=== PATIENT | male | born 1950 | race Caucasian/White ===

== ENCOUNTER 2017-11-19 21:54 | Inpatient (IN) | payer MEDICARE ==
[2017-11-19] MEDS ORDERED: ATIVAN IV ONE ×2 (21:55→22:35)
[2017-11-19] MEDS ORDERED: KEPPRA 1,000 MG/NS 0.75% 100ML 1,000 MG/100 ML BAG IV ONE ×3 (22:00→23:59)
--- NOTE | 2017-11-19 22:02 | Emergency Department Report ---
HPI - General Time Seen by Provider: 11/19/17 22:00 - HPI HPI: 67-year-old male presents to the emergency department via EMS from home as a code stroke. The patient called his girlfriend around 8:45 PM this evening saying that he was not feeling well and to come and check on him. He then called EMS. When EMS arrived the patient was aphasic. They say that he looked like he understood what was going on and wanted to talk but was unable to do so. As they were pulling up towards our emergency department, the patient started having a seizure. He was not given anything for the seizure or for his symptoms prior to arrival. The patient does have a history of previous CVA with right-sided deficits and apparently the previous CVA and also caused him to have some seizures. Unknown any other past medical history or home medications. The patient is currently a poor historian secondary to his current medical condition. ED Past Medical Hx - Past Medical History Hx Hypertension: No Hx CVA: Yes Hx Heart Attack/AMI: Yes (2007 - stents) Hx Congestive Heart Failure: No Hx Diabetes: No Hx Seizures: Yes Hx Asthma: No Hx Tuberculosis: No Hx HIV: No Additional medical history: Right side paralysis - Social History Smoking Status: Never Smoker - Medications Home Medications: Home Medications Medication Instructions Recorded Confirmed Last Taken Type AtorvaSTATin [Lipitor] 80 mg PO QHS 03/23/17 11/20/17 03/21/17 22:00 History 80mg Multivitamin with Iron 1 each PO DAILY 03/23/17 11/20/17 03/22/17 08:30 History [Multivitamins with Iron] 1 tab amLODIPine [Norvasc] 10 mg PO DAILY 03/23/17 11/20/17 03/22/17 08:30 History 10mg Aspirin [Aspirin BABY CHEW TAB] 81 mg PO QDAY 11/20/17 11/20/17 Unknown History Folic Acid [Folvite] 1 mg PO QDAY 11/20/17 11/20/17 Unknown History levETIRAcetam [Keppra] 2,000 mg PO BID 11/20/17 11/20/17 Unknown History ED Review of Systems ROS: Stated complaint: POSS CVA Other details as noted in HPI Comment: Unobtainable due to pts medical conditions Physical Exam - Physical Exam Physical Exam: GENERAL: The patient is well-developed well-nourished. HENT: Normocephalic. Atraumatic. Patient has moist mucous membranes. EYES: Patient appears to have a right-sided gaze preference during his seizures. Pupils equal reactive to light bilaterally. NECK: Supple. Trachea is midline. CHEST/LUNGS: Clear to auscultation. There is no respiratory distress noted. HEART/CARDIOVASCULAR: Regular. There is no tachycardia. There is no murmur. ABDOMEN: Abdomen is soft, nontender. Patient has normal bowel sounds. There is no abdominal distention. SKIN: Skin is warm and dry. NEURO: Patient presents actively seizing with convulsions seen to the right arm , right leg and head with the neck. He does not respond to any verbal or tactile stimuli. MUSCULOSKELETAL: There is no tenderness or deformity. There is no evidence of acute injury. ED Course - Consultations Consultation #1: 11/20/17 04:35 I spoke with the telemedicine neurologist, Dr. Agee, when the patient first arrived as part of the stroke protocol. Based on the fact that the patient was having a prolonged seizure, she did not feel that the patient was a TPA candidate and that his symptoms were more likely related to seizures. After the patient stopped seizing and a better examination was able to be done, the telemedicine neurologist examined him via senior director creative services and feels that his symptoms may be secondary to a Biju's paralysis and still feel that his symptoms were due to the seizure and he has not a TPA candidate. ED Medical Decision Making - Lab Data Result diagrams: 11/19/17 22:09 11/19/17 22:29 - EKG Data -: EKG Interpreted by Me EKG shows normal: sinus rhythm, axis (left axis deviation), intervals, QRS complexes (Q waves to the inferior leads), ST-T waves Rate: normal - EKG Data When compared to previous EKG there are: previous EKG unavailable Interpretation: other (sinus rhythm, left axis deviation, Q waves to the inferior leads) - Radiology Data Radiology results: report reviewed The patient received 2 different doses of 2 mg Ativan. I had a discussion with the telemedicine neurologist, and the neurologist at [facility], and was starting to work on getting the patient transferred to [place] when he stops seizing. He had a seizure for about one hour and 20 minutes. After the seizure stopped and the patient was continuously reassessed, he started to show some improvement in his mentation. He no longer has a gaze preference. You can see that he is tracking with his eyes. He is answering fashions with yes or no only. He is seen moving his left side very well. He is following some commands. After the patient's seizure stopped, I still had a discussion with the neuro critical care physician at [place], Dr. Soto. He agrees that the patient is no longer any status epilepticus and that we have the capability of obtaining an EEG and have a neurology consult, the patient will remain at [facility] but they are open to a transfer if the patient were to decline or began having status epilepticus seizures again. CT scan of the head was done stat upon arrival that did not show any bleed, shift, mass or any other acute process at this time. Patient's labs were mostly unremarkable and did not show any etiology of his symptoms. He was also covered with 2 g of Keppra, which is his twice daily dosing. The patient has been reevaluated multiple times for multiple hours in the emergency department and there has been no further seizure or strokelike activity thus far. Vital signs stable throughout his ED course. Critical Care Time: No Critical care attestation.: If time is entered above; I have spent that time in minutes in the direct care of this critically ill patient, excluding procedure time. ED Disposition Clinical Impression: Seizure disorder, Prolonged seizure Disposition: DC-09 OP ADMIT IP TO THIS HOSP Is pt being admited?: Yes Condition: Serious Time of Disposition: 04:39 - Assessment Assessment Interval: Baseline (Patient actively seizing) - Level of Consciousness 1a. Level of Consciousness: resp stimuli/obtunded - LOC Questions 1b. LOC Questions: answers no questions correctly - LOC Command 1c. LOC Commands: performs no tasks correctly - Best Gaze 2. Best Gaze: forced deviation - Visual 3. Visual: no visual loss - Facial Palsy 4. Facial Palsy: normal symmetrical movement - Motor Arm 5b. Motor Arm Right: no movement 5a. Motor Arm Left: no movement - Motor Leg 6a. Motor Leg Left: no movement 6b. Motor Leg Right: no movement - Limb Ataxia 7. Limb Ataxia: absent - Sensory 8. Sensory: normal - Best Language 9. Best Language: mute/global aphasia - Dysarthria 10. Dysarthria: mute/anarrthric - Extinction and Inattention 11. Extinction/Inattention: no abnormality (This is not an appropriate NIH stroke scale as it was performed while the patient was having active seizures as part of the patient's evaluation for a code stroke. The patient's stroke scale was still difficult to do after the seizure stopped and the patient had improved mentation. The patient does have chronic right-sided weakness from previous CVA 2.) - Scoring Total Score: 29 Stroke Severity: Severe Stroke
[2017-11-19 22:13] LABS: Basophils # (Auto) 0.1 K/mm3 (0.0-0.1); Basophils % (Auto) 0.9 % (0.0-1.8); Eosinophils # (Auto) 0.3 K/mm3 (0.0-0.4); Eosinophils % (Auto) 3.4 % (0.0-4.3); Hemoglobin 15.9 gm/dl (11.8-15.2); Lymphocytes # (Auto) 3.7 K/mm3 (1.2-5.4); Lymphocytes % (Auto) 41.3 % (13.4-35.0); Mean Corpuscular HGB Conc 34 % (32-34); Mean Corpuscular Hemoglobin 32 pg (28-32); Mean Corpuscular Volume 95 fl (84-94); Monocytes % (Auto) 10.6 % (0.0-7.3); Platelet Count 337 K/mm3 (140-440); Red Blood Count 4.95 M/mm3 (3.65-5.03); Red Cell Distribution Width 13.2 % (13.2-15.2)
--- NOTE | 2017-11-19 22:31 | Cat Scan Report ---
FINAL REPORT EXAM: CT HEAD/BRAIN WO CON HISTORY: Stroke symptoms TECHNIQUE: Contiguous axial images of the head were obtained without the use of intravenous contrast. PRIORS: 03/22/2017 FINDINGS: There is a stable left parietal chronic infarct. There is no evidence of acute infarct or intracranial hemorrhage. There is no mass lesion or mass effect. There are no abnormal extra-axial fluid collections. The ventricles and sulci are prominent consistent with generalized loss of brain substance, appropriate for age. The visualized skull and orbits are unremarkable. The visualized paranasal sinuses are clear. IMPRESSION: 1. No evidence of acute infarct or intracranial hemorrhage. 2. Stable left parietal chronic infarct
[2017-11-19] MEDS ORDERED: ATIVAN ONE (22:38)
[2017-11-19] MEDS ORDERED: CEREBYX IV ONE ×2 (22:40→23:00)
[2017-11-19 22:46] LABS: Alanine Aminotransferase 12 units/L (7-56); BUN/Creatinine Ratio 18; Blood Urea Nitrogen 18 mg/dL (9-20); Calcium 9.9 mg/dL (8.4-10.2)
[2017-11-19 22:47] LABS: Albumin 4.7 g/dL (3.9-5); Creatine Kinase MB 1.6 ng/mL (0.0-4.0)
[2017-11-19 22:48] LABS: INR 0.8 (0.87-1.13)
[2017-11-19 22:49] LABS: Partial Thromboplastin Time 30.2 Sec. (24.2-36.6); Thrombin Time 15.8 Sec. (15.1-19.6)
[2017-11-19] MEDS ORDERED: NACL IV ONE (23:00)
[2017-11-19] MEDS ORDERED: [UNRECOGNIZED DRUG - OTHER] IV ONE (23:00)
[2017-11-20] MEDS ORDERED: ATIVAN IV PRN (01:29)
[2017-11-20] MEDS ORDERED: TYLENOL PO PRN (01:31)
[2017-11-20] MEDS ORDERED: ZOFRAN IV PRN (01:31)
[2017-11-20] MEDS ORDERED: ERGOCALCIFEROL 50000 UNIT PO SCH (01:45)
[2017-11-20 03:32] LABS: Bilirubin,Urine NEG (Negative); Blood,Urine NEG (Negative); Color,Urine Straw (Yellow); Protein,Urine <15 mg/dL mg/dL (Negative); Urobilinogen,Urine < 2.0 mg/dL (<2.0); WBC,Urine < 1.0 /HPF (0.0-6.0)
[2017-11-20 03:43] LABS: Amphetamine Screen,Urine PRESUMPTIVE NEGATIVE; Benzodiazepines Screen,Urine PRESUMPTIVE NEGATIVE; Cannabinoid Screen,Urine PRESUMPTIVE NEGATIVE; Cocaine Screen,Urine PRESUMPTIVE NEGATIVE; Methadone Screen,Urine PRESUMPTIVE NEGATIVE; Opiate Screen,Urine PRESUMPTIVE NEGATIVE
--- NOTE | 2017-11-20 06:02 | History and Physical Report ---
CHIEF COMPLAINT: Seizure attack. OTHER COMPLAINT: Include change in mental status. HISTORY OF PRESENTING ILLNESS: The patient is a 67-year-old male who presented to the Emergency Room through EMS as a form of a code stroke because EMS saw the patient at home where he was unable to talk and felt that he probably was having a stroke and then transported patient to the Emergency Room and as the EMS was pooling up near the Emergency Room, the patient started having seizure and was subsequently brought into the Emergency Room. There was no prior history of chest pain. No prior history of shortness of breath. EMS only noted the patient called the girlfriend saying that he was not feeling too well and was unable to talk. There is no history of dizziness, fever, or chills, nausea or vomiting. PAST MEDICAL HISTORY: Pertinent for cerebrovascular accident, coronary artery disease, status post myocardial infarction, also the patient has past history of seizure disorder and right-sided paralysis. PAST SURGICAL HISTORY: Unremarkable. FAMILY HISTORY: Family history is noncontributory. SOCIAL HISTORY: The patient does not smoke, does not drink alcohol and does not use illicit drugs. MEDICATIONS: The patient is on aspirin 325 mg by mouth daily, Lipitor 80 mg by mouth at bedtime, vitamin D2 50,000 units every week, Nexium 40 mg by mouth twice daily, folic acid 1 mg by mouth daily, magnesium oxide 400 mg by mouth daily, multivitamin one by mouth daily, potassium chloride or Klor-Con 20 mEq by mouth daily, Norvasc 10 mg by mouth daily, Celexa 20 mg by mouth daily, Plavix 75 mg by mouth daily, multivitamin with mineral 1 by mouth daily, Keppra 1500 mg by mouth twice daily. ALLERGIES: There are no known drug allergies. REVIEW OF SYSTEMS: CONSTITUTIONAL: There is no fever, no chills, no diaphoresis. HEENT: There is no headache or sore throat. CARDIOVASCULAR SYSTEM: There is no chest pain or orthopnea. RESPIRATORY SYSTEM: There is no shortness of breath or cough. GASTROINTESTINAL SYSTEM: There is no nausea, no vomiting. No abdominal pain, diarrhea or constipation. NEUROLOGICAL SYSTEM: Speech impairment present, change in mental status present. MUSCULOSKELETAL SYSTEM: There is no joint pain or swelling. DERMATOLOGICAL SYSTEM: There is no skin rash or itching. GENITOURINARY SYSTEM: There is no dysuria, hematuria or flank pain. Rest of system review is normal. PHYSICAL EXAMINATION: GENERAL: At the time of exam, the patient was found to be alert, oriented x 3, unable to communicate and talk effectively, but not in acute distress. VITAL SIGNS: Shows normal temperature with pulse of 89, respiration 13, blood pressure 133/80, O2 sat of 97% on room air. HEENT: Show pupils to be equal, round, reactive to light and accommodating. Extraocular muscles are intact. NECK: Supple with no JVD or carotid bruit. CARDIOVASCULAR SYSTEM: Show normal first and second heart sounds with no gallops or murmurs. RESPIRATORY SYSTEM: Showed good air entry on both sides of the lungs with no abnormal breath sounds. GASTROINTESTINAL SYSTEM: Showed abdomen to be full, soft, nontender with no organomegaly or rigidity. NEUROLOGIC: Neuro exam shows no focal deficit. MUSCULOSKELETAL SYSTEM: Showed no joint swelling or tenderness. DERMATOLOGICAL SYSTEM: Showed no skin rash. GENITOURINARY SYSTEM: Showing no costovertebral angle tenderness. PERTINENT LABORATORY AND IMAGING STUDIES: The patient has CT of the head without contrast done that shows no evidence of acute infarct or intracranial hemorrhage. There is finding of stable left parietal chronic infarct. Lab results, the patient has CBC done that shows a normal white count, elevated hemoglobin of 15.9 and elevated hematocrit of 47 with high MCV of 95. The patient's CBC differential show high lymphocyte count of 41.3, high monocyte count of 10.6. Coagulation studies were unremarkable. The patient's chemistry came back unremarkable. Urinalysis was unremarkable. Urine drug screen was unremarkable. The patient's alcohol level was unremarkable. DIAGNOSES: 1. Seizure disorder. 2. Speech impairment. PLAN: 1. The patient will be admitted to telemetry. 2. The patient will have MRI of the brain done without contrast this morning as recommended by Tele Neurology. 3. The patient will have Neurology consult with Dr. Tez Brian for management of seizure disorder and speech impairment. 4. The patient will have speech therapy consult this morning. 5. The patient will be on IV Ativan 1 mg every 2 hours as needed for seizure attack. 6. The patient will be on IV Zofran 4 mg every 8 hours for nausea and vomiting and will also be on Tylenol 650 mg by mouth every 4 hours for fever and headache. 7. The patient will be on his home medication as shown in the medication reconciliation section. 8. The patient will be on oxygen by nasal cannula at 2 liter per minute. 9. The patient will be n.p.o. until swallow test is passed. JOB# [id number] OCN/NTS MTDD
[2017-11-20] MEDS ORDERED: ATIVAN ONE (07:17)
[2017-11-20] MEDS ORDERED: NON-FORMULARY (Multivitamin With Iron [Multivitamins With Iron] 1 EACH) PO SCH (10:00)
[2017-11-20] MEDS: KEPPRA PO SCH ×2 (11:52→21:19)
[2017-11-20] MEDS: PLAVIX PO SCH (11:52)
[2017-11-20] MEDS: MAG-OX PO SCH (11:52)
[2017-11-20] MEDS: NORVASC PO SCH (11:53)
[2017-11-20] MEDS: celeXA PO SCH (11:53)
[2017-11-20] MEDS: PROTONIX PO SCH ×2 (11:54→21:19)
[2017-11-20] MEDS: ASPIRIN PO SCH (11:54)
[2017-11-20] MEDS: FOLVITE PO SCH (11:54)
[2017-11-20] MEDS: HEPARIN SUB-Q SCH ×2 (11:54→21:19)
[2017-11-20] MEDS: THERAGRAN-M Tab PO SCH (11:54)
--- NOTE | 2017-11-20 12:05 | Magnetic Resonance Report ---
MRI BRAIN WITHOUT CONTRAST INDICATION: Seizure. COMPARISON: Yesterday's head CT and February 2017 neuroimaging, including MRI. FINDINGS: Noncontrast multiplanar and multisequence MRI of the brain now demonstrates approximately 5.7 cm old left parietal-posterior frontal-temporal infarct/encephalomalacia without acute infarct, hemorrhage, mass effect or midline shift. No abnormal extra axial masses or fluid collections. Normal remainder ventricles and sulci with mild periventricular and biju-infarct FLAIR and T2-weighted hyperintensities. Occluded left ICA again noted with grossly normal remainder major intracranial vascular flow voids. Normal posterior fossa with preserved basilar cisterns and symmetric seventh and eighth nerve complexes. Unremarkable eye globes. Mild leftward nasal septal bowing. Grossly clear imaged paranasal sinuses, temporal bone and right mastoid air cells with left mastoid tip again noted not well pneumatized. Normal midline structures without evidence of Chiari malformation. CONCLUSION: No acute intracranial MRI abnormality on this exam slightly limited due to motion artifact with age appropriate atrophy, microvascular changes and an approximately 5.7 cm old left MCA territory infarct again noted, as detailed above. Thank you for the opportunity to participate in this patient's care.
--- NOTE | 2017-11-20 18:47 | Progress Note ---
Assessment and Plan Assessment and plan: --Seizure disorder; with breakthrough seizures Seizure precautions, continue Keppra, neurology following May consider to add a second antiepileptic medication. Follow EEG --Brief episode of stuttering of speech; possible TIA Symptoms completely resolved, CT head, MRI no acute abnormality Continue aspirin and statin, physical therapy, speech therapy if needed Possible DC with home health in stable --History of carotid artery stenosis; status post stent Continue current medications, antiplatelets and statins --Hypertension; moderate control Continue current antihypertensives and when necessary medications --Dyslipidemia; lipid-lowering medications --DVT prophylaxis; Lovenox DC planning per case management; possible home health to discharge Physical therapy occupational therapy Neurology recommendations noted and appreciated History Interval history: Patient seen and examined medical records reviewed Complaints of right-sided weakness, slurring speech improved Neuro workup is in progress Hospitalist Physical - Constitutional Vitals: Temp Pulse Resp BP Pulse Ox 97.4 F L 86 18 123/74 95 11/20/17 13:40 11/20/17 17:04 11/20/17 17:04 11/20/17 17:04 11/20/17 17:04 General appearance: Present: no acute distress, well-nourished, obese, other ( speech clear) - EENT Eyes: Present: PERRL, EOM intact - Neck Neck: Present: supple, normal ROM - Respiratory Respiratory effort: normal Respiratory: negative: rales, rhonchi, wheezing - Cardiovascular Rhythm: regular Heart Sounds: Present: S1 & S2 - Extremities Extremities: no ischemia, No edema Peripheral Pulses: within normal limits - Abdominal General gastrointestinal: soft, non-tender, non-distended, normal bowel sounds - Integumentary Integumentary: Present: clear, warm - Psychiatric Psychiatric: appropriate mood/affect, cooperative - Neurologic Neurologic: other (right-sided residual weakness) Results - Labs CBC & Chem 7: 11/19/17 22:09 11/19/17 22:29 Labs: Laboratory Last Values WBC 9.0 K/mm3 (4.5-11.0) 11/19/17 22:09 RBC 4.95 M/mm3 (3.65-5.03) 11/19/17 22:09 Hgb 15.9 gm/dl (11.8-15.2) H 11/19/17 22:09 Hct 47.0 % (35.5-45.6) H 11/19/17 22:09 MCV 95 fl (84-94) H 11/19/17 22:09 MCH 32 pg (28-32) 11/19/17 22:09 MCHC 34 % (32-34) 11/19/17 22:09 RDW 13.2 % (13.2-15.2) 11/19/17 22:09 Plt Count 337 K/mm3 (140-440) 11/19/17 22:09 Lymph % (Auto) 41.3 % (13.4-35.0) H 11/19/17 22:09 [place] % (Auto) 10.6 % (0.0-7.3) H 11/19/17 22:09 Eos % (Auto) 3.4 % (0.0-4.3) 11/19/17 22:09 Baso % (Auto) 0.9 % (0.0-1.8) 11/19/17 22:09 Lymph # 3.7 K/mm3 (1.2-5.4) 11/19/17 22:09 [place] # 1.0 K/mm3 (0.0-0.8) H 11/19/17 22:09 Eos # 0.3 K/mm3 (0.0-0.4) 11/19/17 22:09 Baso # 0.1 K/mm3 (0.0-0.1) 11/19/17 22:09 Seg Neutrophils % 43.8 % (40.0-70.0) 11/19/17 22:09 Seg Neutrophils # 4.0 K/mm3 (1.8-7.7) 11/19/17 22:09 PT 11.6 Sec. (12.2-14.9) L 11/19/17 22:05 INR 0.80 (0.87-1.13) L 11/19/17 22:05 APTT 30.2 Sec. (24.2-36.6) 11/19/17 22:05 Thrombin Time 15.8 Sec. (15.1-19.6) 11/19/17 22:05 Sodium 140 mmol/L (137-145) 11/19/17 22:29 Potassium 4.3 mmol/L (3.6-5.0) 11/19/17 22: Chloride 100.9 mmol/L (98-107) 11/19/17 22: Carbon Dioxide 20 mmol/L (22-30) L 11/19/17 22: Anion Gap 23 mmol/L 11/19/17 22: BUN 18 mg/dL (9-20) 11/19/17: Creatinine 1.0 mg/dL (0.8-1.5) 11/19/17 22: Estimated GFR > 60 ml/min 11/19/17: BUN/Creatinine Ratio 18 % 11/19/17 22: Glucose 128 mg/dL (75-100) H 11/19/17 22: POC Glucose 121 (70-105) H 11/19/17 22:00 Calcium 9.9 mg/dL (8.4-10.2) 11/19/17: Total Bilirubin 0.40 mg/dL (0.1-1.2) 11/19/17: AST 20 units/L (5-40) 11/19/17: ALT 12 units/L (7-56) 11/19/17 22: Alkaline Phosphatase 111 units/L (35-129) 11/19/17 22: Total Creatine Kinase 107 units/L (55-170) 11/19/17 22: CK-MB (CK-2) 1.6 ng/mL (0.0-4.0) 11/19/17 22: CK-MB (CK-2) Rel Index 1.4 (0-4) 11/19/17: Troponin T < 0.010 ng/mL (0.00-0.029) 11/20/17 06:05 Total Protein 8.0 g/dL (6.3-8.2) 11/19/17: Albumin 4.7 g/dL (3.9-5) 11/19/17: Albumin/Globulin Ratio 1.4 % 11/19/17: Urine Color Straw (Yellow) 11/20/17 03:05 Urine Turbidity Clear (Clear) 11/20/17 03:05 Urine pH 6.0 (5.0-7.0) 11/20/17 03:05 Ur Specific [place] 1.010 (1.003-1.030) 11/20/17 03:05 Urine Protein <15 mg/dl mg/dL (Negative) 11/20/17 03:05 Urine Glucose (UA) 50 mg/dL (Negative) 11/20/17 03:05 Urine Ketones Neg mg/dL (Negative) 11/20/17 03:05 Urine Blood Neg (Negative) 11/20/17 03:05 Urine Nitrite Neg (Negative) 11/20/17 03:05 Urine Bilirubin Neg (Negative) 11/20/17 03:05 Urine Urobilinogen < 2.0 mg/dL (<2.0) 11/20/17 03:05 Ur Leukocyte Esterase Neg (Negative) 11/20/17 03:05 Urine WBC (Auto) < 1.0 /HPF (0.0-6.0) 11/20/17 03:05 Urine RBC (Auto) 1.0 /HPF (0.0-6.0) 11/20/17 03:05 Urine Opiates Screen Presumptive negative 11/20/17 03:05 Urine Methadone Screen Presumptive negative 11/20/17 03:05 Ur Barbiturates Screen Presumptive negative 11/20/17 03:05 Ur Phencyclidine Scrn Presumptive negative 11/20/17 03:05 Ur Amphetamines Screen Presumptive negative 11/20/17 03:05 U Benzodiazepines Scrn Presumptive negative 11/20/17 03:05 Urine Cocaine Screen Presumptive negative 11/20/17 03:05 U Marijuana (THC) Screen Presumptive negative 11/20/17 03:05 Drugs of Abuse Note Disclamer 11/20/17 03:05 Plasma/Serum Alcohol < 0.01 % (0-0.07) 11/19/17 22:05 Blood Type A POSITIVE 11/19/17 22:29 Antibody Screen Negative 11/19/17 22:29
[2017-11-21] MEDS: PROTONIX PO SCH ×2 (10:41→21:52)
[2017-11-21] MEDS: PLAVIX PO SCH (10:41)
[2017-11-21] MEDS: THERAGRAN-M Tab PO SCH (10:41)
[2017-11-21] MEDS: celeXA PO SCH (10:41)
[2017-11-21] MEDS: ASPIRIN PO SCH (10:41)
[2017-11-21] MEDS: NORVASC PO SCH (10:41)
[2017-11-21] MEDS: KEPPRA PO SCH ×2 (10:41→21:52)
[2017-11-21] MEDS: MAG-OX PO SCH (10:41)
[2017-11-21] MEDS: FOLVITE PO SCH (10:41)
[2017-11-21] MEDS: HEPARIN SUB-Q SCH ×2 (10:42→21:52)
[2017-11-21] MEDS ORDERED: AFLURIA QUAD 2018-2019 SYRINGE IM ONE (12:00)
--- NOTE | 2017-11-21 15:42 | Consultation ---
REFERRING PHYSICIAN: Dr. Lewis Talbot. REASON FOR CONSULTATION: Seizure. HISTORY OF PRESENT ILLNESS: History was given by the fiancee or live-in girlfriend. The patient is a 67-year-old [place] male who was admitted because of possible stroke or seizures. History was given by the girlfriend who said that she was called by the patient to come to the room because he was not feeling well. This was at about 8:45 p.m. The girlfriend called EMS and when they arrived, the patient could not talk. However, he understood what was going on and would understand what they were saying. Therefore, they brought him to the Emergency Room and when they were about ready to get in, the patient started to have a seizure. He was brought inside and I suspect that seizure stopped. They thought that seizure. The patient did not appear to have any chest pain. No shortness of breath, no palpitation, no dizziness. From the previous history, the patient had a stroke way back in August 2016. Then after a few months, he had a seizure. Then he had a second seizure around February 2017. He has had a previous stroke. He is being followed by [facility] as well as neurologist. In fact, they have an appointment right now. The patient is doing better now and according to the girlfriend, he is starting to talk more and moving the right side more. PAST MEDICAL HISTORY: Cerebrovascular accident as discussed above, coronary artery disease. He had myocardial infarction before. He has had seizure. PAST SURGICAL HISTORY: None. FAMILY HISTORY: Not known. SOCIAL HISTORY: The patient does not smoke and does not drink alcoholic beverages. No illicit drug. MEDICATIONS: Include aspirin 325 daily, Lipitor 80 mg at bedtime, vitamin D2, Nexium 40 mg twice daily, folic acid 1 mg daily, magnesium oxide 400 mg daily, multivitamin 1 daily, potassium chloride 20 mEq daily, Norvasc 10 mg daily, Celexa 20 mg daily, Plavix 75 mg daily, multivitamin, Keppra that appears to be taking 1500 mg twice daily, but now apparently taking 400 mg or 2000 mg b.i.d. ALLERGIES: No known drug allergies. REVIEW OF SYSTEMS: NEUROLOGIC: None other than those mentioned above. The main symptom now is speech impediment as well as just weakness, objective sign of right hemiparesis as well as speech. PHYSICAL EXAMINATION: GENERAL: Reveals a well-developed, well-nourished male who is in no acute distress. VITAL SIGNS: Reveal blood pressure of 130/80, oxygen saturation at room air of 97%, respirations 15, pulse rate 89, temperature afebrile. HEAD, EYES, EARS, NOSE, MOUTH, AND THROAT: Unremarkable. No intracranial or intraorbital bruits. NECK: Supple. No carotid bruit. HEART: Regular rate and rhythm. LUNGS: Sounds clear. ABDOMEN: Soft. EXTREMITIES: Appear externally normal. NEUROLOGIC: Reveals the patient is awake, alert. He is aphasic, but he could follow verbal commands. I could not examine full mental status, but by the way, he is reacting, following commands. He is not demented or encephalopathic. Cranial nerves show a very subtle right-sided facial weakness and possibly right homonymous hemianopia. Motor examination: Right upper and right lower extremities is at least about 3.5/5, left side is about 5/5. Reflexes are symmetrical. Subtle Babinski on the right. The patient had a CT scan of the brain which showed no evidence of acute infarct, but there was a stable left-sided parietal infarct. CLINICAL IMPRESSION: This patient presented with seizure, which I believe is related to the stroke that he had before. I am not sure whether he did have multiple strokes. I do not think the patient had the stroke right now. The worsening of his speech as well as the right-sided weakness could be postictal effect from the seizure. He is now slowly getting better according to the girlfriend. PLAN: I agree with MRI of the brain done without contrast. We should do a sleep EEG. Right now, he is taking already medication for prevention of stroke. He is taking now Keppra 1500 mg b.i.d. I was told by the girlfriend that he is taking 2000 mg b.i.d. The patient apparently received 1 dose of fosphenytoin and had a loading dose of Keppra, but on the note, this was discontinued. With this patient having seizures even though he was on Keppra suggests that he probably needs another medication to supplement this. Either he can have Dilantin at 200 mg p.o. b.i.d. or Tegretol 100 mg b.i.d. to supplement with the Keppra, which he should be taking 1500 mg p.o. b.i.d. 60 minutes were involved in the history and physical examination with more than 50% in the coordination of care, counseling, and discussion with the girlfriend. JOB# [id number] MARICEL/DALY
--- NOTE | 2017-11-21 18:37 | Progress Note ---
Assessment and Plan Assessment and plan: --Brief episode of slurring of speech; resolved, possible TIA Symptoms completely resolved, CT head, MRI no acute abnormality Continue aspirin and statin, physical therapy, speech therapy if needed Possible DC with home health in stable --Seizure disorder; with breakthrough seizures Seizure precautions, continue Keppra, neurology following May consider to add a second antiepileptic medication. Follow EEG --History of carotid artery stenosis; status post stent Continue current medications, antiplatelets and statins --Hypertension; moderate control Continue current antihypertensives and when necessary medications --Dyslipidemia; lipid-lowering medications --DVT prophylaxis; Lovenox DC planning per case management; possible home health to discharge Physical therapy occupational therapy Neurology recommendations noted and appreciated History Interval history: Patient seen and examined medical records reviewed Sincerely slightly but in no new complaints No new episodes of seizures Sliding of speech completely resolved Vital signs noted Hospitalist Physical - Constitutional Vitals: Temp Pulse Resp BP Pulse Ox 97.5 F L 78 18 130/74 95 11/21/17 17:48 11/21/17 17:48 11/21/17 17:48 11/21/17 17:48 11/21/17 17:48 General appearance: Present: no acute distress, well-nourished, obese, other ( speech clear) - EENT Eyes: Present: PERRL, EOM intact - Neck Neck: Present: supple, normal ROM - Respiratory Respiratory effort: normal Respiratory: bilateral: diminished, negative: rales, rhonchi, wheezing - Cardiovascular Rhythm: regular Heart Sounds: Present: S1 & S2 - Extremities Extremities: no ischemia, No edema - Abdominal General gastrointestinal: soft, non-tender, non-distended, normal bowel sounds - Integumentary Integumentary: Present: clear, warm - Psychiatric Psychiatric: appropriate mood/affect, cooperative - Neurologic Neurologic: other (residual right-sided weakness) Results - Labs CBC & Chem 7: 11/19/17 22:09 11/19/17 22:29 Labs: Laboratory Last Values WBC 9.0 K/mm3 (4.5-11.0) 11/19/17 22:09 RBC 4.95 M/mm3 (3.65-5.03) 11/19/17 22:09 Hgb 15.9 gm/dl (11.8-15.2) H 11/19/17 22:09 Hct 47.0 % (35.5-45.6) H 11/19/17 22:09 MCV 95 fl (84-94) H 11/19/17 22:09 MCH 32 pg (28-32) 11/19/17 22:09 MCHC 34 % (32-34) 11/19/17 22:09 RDW 13.2 % (13.2-15.2) 11/19/17 22:09 Plt Count 337 K/mm3 (140-440) 11/19/17 22:09 Lymph % (Auto) 41.3 % (13.4-35.0) H 11/19/17 22:09 [place] % (Auto) 10.6 % (0.0-7.3) H 11/19/17 22:09 Eos % (Auto) 3.4 % (0.0-4.3) 11/19/17 22:09 Baso % (Auto) 0.9 % (0.0-1.8) 11/19/17 22:09 Lymph # 3.7 K/mm3 (1.2-5.4) 11/19/17 22:09 [place] # 1.0 K/mm3 (0.0-0.8) H 11/19/17 22:09 Eos # 0.3 K/mm3 (0.0-0.4) 11/19/17 22:09 Baso # 0.1 K/mm3 (0.0-0.1) 11/19/17 22:09 Seg Neutrophils % 43.8 % (40.0-70.0) 11/19/17 22:09 Seg Neutrophils # 4.0 K/mm3 (1.8-7.7) 11/19/17 22:09 PT 11.6 Sec. (12.2-14.9) L 11/19/17 22:05 INR 0.80 (0.87-1.13) L 11/19/17 22:05 APTT 30.2 Sec. (24.2-36.6) 11/19/17 22:05 Thrombin Time 15.8 Sec. (15.1-19.6) 11/19/17 22:05 Sodium 140 mmol/L (137-145) 11/19/17 22:29 Potassium 4.3 mmol/L (3.6-5.0) 11/19/17 22: Chloride 100.9 mmol/L (98-107) 11/19/17 22: Carbon Dioxide 20 mmol/L (22-30) L 11/19/17: Anion Gap 23 mmol/L 11/19/17: BUN 18 mg/dL (9-20) 11/19/17: Creatinine 1.0 mg/dL (0.8-1.5) 11/19/17: Estimated GFR > 60 ml/min 11/19/17: BUN/Creatinine Ratio 18 % 11/19/17: Glucose 128 mg/dL (75-100) H 11/19/17: POC Glucose 121 (70-105) H 11/19/17 22:00 Calcium 9.9 mg/dL (8.4-10.2) 11/19/17: Total Bilirubin 0.40 mg/dL (0.1-1.2) 11/19/17: AST 20 units/L (5-40) 11/19/17: ALT 12 units/L (7-56) 11/19/17: Alkaline Phosphatase 111 units/L (35-129) 11/19/17: Total Creatine Kinase 107 units/L (55-170) 11/19/17: CK-MB (CK-2) 1.6 ng/mL (0.0-4.0) 11/19/17: CK-MB (CK-2) Rel Index 1.4 (0-4) 11/19/17: Troponin T < 0.010 ng/mL (0.00-0.029) 11/20/17 06:05 Total Protein 8.0 g/dL (6.3-8.2) 11/19/17: Albumin 4.7 g/dL (3.9-5) 11/19/17: Albumin/Globulin Ratio 1.4 % 11/19/17: Urine Color Straw (Yellow) 11/20/17 03:05 Urine Turbidity Clear (Clear) 11/20/17 03:05 Urine pH 6.0 (5.0-7.0) 11/20/17 03:05 Ur Specific [place] 1.010 (1.003-1.030) 11/20/17 03:05 Urine Protein <15 mg/dl mg/dL (Negative) 11/20/17 03:05 Urine Glucose (UA) 50 mg/dL (Negative) 11/20/17 03:05 Urine Ketones Neg mg/dL (Negative) 11/20/17 03:05 Urine Blood Neg (Negative) 11/20/17 03:05 Urine Nitrite Neg (Negative) 11/20/17 03:05 Urine Bilirubin Neg (Negative) 11/20/17 03:05 Urine Urobilinogen < 2.0 mg/dL (<2.0) 11/20/17 03:05 Ur Leukocyte Esterase Neg (Negative) 11/20/17 03:05 Urine WBC (Auto) < 1.0 /HPF (0.0-6.0) 11/20/17 03:05 Urine RBC (Auto) 1.0 /HPF (0.0-6.0) 11/20/17 03:05 Urine Opiates Screen Presumptive negative 11/20/17 03:05 Urine Methadone Screen Presumptive negative 11/20/17 03:05 Ur Barbiturates Screen Presumptive negative 11/20/17 03:05 Ur Phencyclidine Scrn Presumptive negative 11/20/17 03:05 Ur Amphetamines Screen Presumptive negative 11/20/17 03:05 U Benzodiazepines Scrn Presumptive negative 11/20/17 03:05 Urine Cocaine Screen Presumptive negative 11/20/17 03:05 U Marijuana (THC) Screen Presumptive negative 11/20/17 03:05 Drugs of Abuse Note Disclamer 11/20/17 03:05 Plasma/Serum Alcohol < 0.01 % (0-0.07) 11/19/17 22:05 Blood Type A POSITIVE 11/19/17 22:29 Antibody Screen Negative 11/19/17 22:29
--- NOTE | 2017-11-22 05:25 | Physician Progress Note ---
NEUROLOGY PROGRESS NOTE SUBJECTIVE: The patient is doing very well. He is feeling much better. He is also much more awake. His speech is better. His strength on the right side is also better. OBJECTIVE: The patient is awake and alert. Right-sided hemiparesis that improved. His speech also improved. ASSESSMENT: Seizures secondary to stroke. The weakness yesterday most likely was related to postictal effect. He is now improved. PLAN: I discussed with Dr. Schaeffer, attending. The patient should be given supplement with the Keppra. He is taking 1500 mg p.o. b.i.d. I would prefer Tegretol 200 mg p.o. b.i.d., started on Dilantin in view of the side effects. If discharged, he should be followed by his primary care physician or a neurologist. The or veronica said that he has a neurologist following him at [facility], and he will give them a call. JOB# [id number] MARICEL/DALY
[2017-11-22 06:25] LABS: Chol/HDL Ratio 3.1 %
[2017-11-22] MEDS: KEPPRA PO SCH (11:12)
[2017-11-22] MEDS: celeXA PO SCH (11:12)
[2017-11-22] MEDS: THERAGRAN-M Tab PO SCH (11:12)
[2017-11-22] MEDS: MAG-OX PO SCH (11:12)
[2017-11-22] MEDS: PROTONIX PO SCH (11:12)
[2017-11-22] MEDS: NORVASC PO SCH (11:12)
[2017-11-22] MEDS: HEPARIN SUB-Q SCH (11:13)
[2017-11-22] MEDS: ASPIRIN PO SCH (11:13)
[2017-11-22] MEDS: PLAVIX PO SCH (11:13)
[2017-11-22] MEDS: FOLVITE PO SCH (11:13)
[2017-11-22 16:39] VITALS: BP 131/84
--- NOTE | 2017-11-22 17:00 | Discharge Summary ---
Providers - Providers Date of Admission: 11/20/17 01:25 Date of discharge: 11/22/17 Attending physician: SABRA BROWN 11/20/17 06:00 Consult to Physician [CONS] Routine Comment: Consulting Provider: UGO CHANDLER Physician Instructions: Reason For Exam: SEIZURE ATTACK Speech Therapy Evaluation and Treat [CONS] Routine Reason For Exam: SPEECH IMPAIRMENT 11/21/17 11:42 Physical Therapy Evaluation and Treat [CONS] Routine Comment: Reason For Exam: cva witn rt weakness,evaluate for home PT Primary care physician: DIETITIAN TEACHER Hospitalization Condition: Serious Pertinent studies: CT head without contrast; no evidence of acute infarct or intracranial hemorrhage, stable left parietal chronic infarct MRI brain; no acute intracranial MRA abnormality, old left MCA Infarct approximately 5.7 cm EEG; normal waking and drowsy and sleep EEG for age no electrical evidence of cortical disease or seizure Hospital course: --Brief episode of slurring of speech; resolved, possible TIA Symptoms completely resolved, CT head, MRI no acute abnormality Continue aspirin and statin, physical therapy, speech therapy if needed Possible DC with home health in stable --Seizure disorder; with breakthrough seizures Seizure precautions, continue Keppra, neurology following May consider to add a second antiepileptic medication. Follow EEG --History of carotid artery stenosis; status post stent Continue current medications, antiplatelets and statins --Hypertension; moderate control Continue current antihypertensives and when necessary medications --Dyslipidemia; lipid-lowering medications Disposition: DC-01 TO HOME OR SELFCARE Time spent for discharge: 32 min Core Measure Documentation - Palliative Care Palliative Care/ Comfort Measures: Not Applicable - Core Measures Any of the following diagnoses?: none Exam - Constitutional Vitals: Temp Pulse Resp BP Pulse Ox 97.9 F 84 18 131/84 97 11/22/17 16:37 11/22/17 16:37 11/22/17 16:37 11/22/17 16:37 11/22/17 16:37 General appearance: Present: no acute distress, well-nourished, obese Plan Activity: no driving until cleared by PCP, fall precautions, other (seizure precautions) Additional Instructions: Do not drive for 6 months. Seizure precautions, Fall precautions. Follow private neurologist in 1 week Follow up with: DELPHINE PENN MD [Primary Care Provider] - 7 Days KELLY LINDQUIST MD [Staff Physician] - 7 Days Prescriptions: amLODIPine [Norvasc] 10 mg PO DAILY #30 tablet carBAMazepine [TEGretol] 200 mg PO BID #60 tablet Other Discharge Orders: Occupational Therapy (Amb) Location: None Selected Physicial Therapy (Amb) Location: None Selected
--- NOTE | 2017-11-23 23:29 | Progress Note ---
Assessment and Plan Assessment and plan: -Brief episode of slurring of speech; resolved, possible TIA Symptoms completely resolved, CT head, MRI no acute abnormality Continue aspirin and statin, physical therapy, speech therapy if needed Possible DC with home health in stable --Seizure disorder; with breakthrough seizures Seizure precautions, continue Keppra, neurology following May consider to add a second antiepileptic medication. Follow EEG --History of carotid artery stenosis; status post stent Continue current medications, antiplatelets and statins --Hypertension; moderate control Continue current antihypertensives and when necessary medications --Dyslipidemia; lipid-lowering medications Hospitalist Physical - Constitutional Vitals: Temp Pulse Resp BP Pulse Ox 97.9 F 84 18 131/84 97 11/22/17 16:37 11/22/17 16:37 11/22/17 16:37 11/22/17 16:37 11/22/17 16:37 General appearance: Present: no acute distress, well-nourished, obese Results - Labs CBC & Chem 7: 11/19/17 22:09 11/19/17 22:29 Labs: Laboratory Last Values WBC 9.0 K/mm3 (4.5-11.0) 11/19/17 22:09 RBC 4.95 M/mm3 (3.65-5.03) 11/19/17 22:09 Hgb 15.9 gm/dl (11.8-15.2) H 11/19/17 22:09 Hct 47.0 % (35.5-45.6) H 11/19/17 22:09 MCV 95 fl (84-94) H 11/19/17 22:09 MCH 32 pg (28-32) 11/19/17 22:09 MCHC 34 % (32-34) 11/19/17 22:09 RDW 13.2 % (13.2-15.2) 11/19/17 22:09 Plt Count 337 K/mm3 (140-440) 11/19/17 22:09 Lymph % (Auto) 41.3 % (13.4-35.0) H 11/19/17 22:09 [place] % (Auto) 10.6 % (0.0-7.3) H 11/19/17 22:09 Eos % (Auto) 3.4 % (0.0-4.3) 11/19/17 22:09 Baso % (Auto) 0.9 % (0.0-1.8) 11/19/17 22:09 Lymph # 3.7 K/mm3 (1.2-5.4) 11/19/17 22:09 [place] # 1.0 K/mm3 (0.0-0.8) H 11/19/17 22:09 Eos # 0.3 K/mm3 (0.0-0.4) 11/19/17 22:09 Baso # 0.1 K/mm3 (0.0-0.1) 11/19/17 22:09 Seg Neutrophils % 43.8 % (40.0-70.0) 11/19/17 22:09 Seg Neutrophils # 4.0 K/mm3 (1.8-7.7) 11/19/17 22:09 PT 11.6 Sec. (12.2-14.9) L 11/19/17 22:05 INR 0.80 (0.87-1.13) L 11/19/17 22:05 APTT 30.2 Sec. (24.2-36.6) 11/19/17 22:05 Thrombin Time 15.8 Sec. (15.1-19.6) 11/19/17 22:05 Sodium 140 mmol/L (137-145) 11/19/17 22:29 Potassium 4.3 mmol/L (3.6-5.0) 11/19/17 22:29 Chloride 100.9 mmol/L (98-107) 11/19/17 22:29 Carbon Dioxide 20 mmol/L (22-30) L 11/19/17 22:29 Anion Gap 23 mmol/L 11/19/17 22:29 BUN 18 mg/dL (9-20) 11/19/17 22:29 Creatinine 1.0 mg/dL (0.8-1.5) 11/19/17 22:29 Estimated GFR > 60 ml/min 11/19/17 22:29 BUN/Creatinine Ratio 18 % 11/19/17 22:29 Glucose 128 mg/dL (75-100) H 11/19/17 22:29 POC Glucose 81 (70-105) 11/22/17 11:46 Calcium 9.9 mg/dL (8.4-10.2) 11/19/17 22:29 Total Bilirubin 0.40 mg/dL (0.1-1.2) 11/19/17 22:29 AST 20 units/L (5-40) 11/19/17 22: ALT 12 units/L (7-56) 11/19/17 22: Alkaline Phosphatase 111 units/L (35-129) 11/19/17 22: Total Creatine Kinase 107 units/L (55-170) 11/19/17 22:29 CK-MB (CK-2) 1.6 ng/mL (0.0-4.0) 11/19/17 22: CK-MB (CK-2) Rel Index 1.4 (0-4) 11/19/17: Troponin T < 0.010 ng/mL (0.00-0.029) 11/20/17 06:05 Total Protein 8.0 g/dL (6.3-8.2) 11/19/17 22: Albumin 4.7 g/dL (3.9-5) 11/19/17 22: Albumin/Globulin Ratio 1.4 % 11/19/17 22:29 Triglycerides 92 mg/dL (2-149) 11/22/17 05:09 Cholesterol 152 mg/dL (50-199) 11/22/17 05:09 LDL Cholesterol Direct 102 mg/dL (50-130) 11/22/17 05:09 HDL Cholesterol 49 mg/dL (40-59) 11/22/17 05:09 Cholesterol/HDL Ratio 3.10 % 11/22/17 05:09 Urine Color Straw (Yellow) 11/20/17 03:05 Urine Turbidity Clear (Clear) 11/20/17 03:05 Urine pH 6.0 (5.0-7.0) 11/20/17 03:05 Ur Specific [place] 1.010 (1.003-1.030) 11/20/17 03:05 Urine Protein <15 mg/dl mg/dL (Negative) 11/20/17 03:05 Urine Glucose (UA) 50 mg/dL (Negative) 11/20/17 03:05 Urine Ketones Neg mg/dL (Negative) 11/20/17 03:05 Urine Blood Neg (Negative) 11/20/17 03:05 Urine Nitrite Neg (Negative) 11/20/17 03:05 Urine Bilirubin Neg (Negative) 11/20/17 03:05 Urine Urobilinogen < 2.0 mg/dL (<2.0) 11/20/17 03:05 Ur Leukocyte Esterase Neg (Negative) 11/20/17 03:05 Urine WBC (Auto) < 1.0 /HPF (0.0-6.0) 11/20/17 03:05 Urine RBC (Auto) 1.0 /HPF (0.0-6.0) 11/20/17 03:05 Urine Opiates Screen Presumptive negative 11/20/17 03:05 Urine Methadone Screen Presumptive negative 11/20/17 03:05 Ur Barbiturates Screen Presumptive negative 11/20/17 03:05 Ur Phencyclidine Scrn Presumptive negative 11/20/17 03:05 Ur Amphetamines Screen Presumptive negative 11/20/17 03:05 U Benzodiazepines Scrn Presumptive negative 11/20/17 03:05 Urine Cocaine Screen Presumptive negative 11/20/17 03:05 U Marijuana (THC) Screen Presumptive negative 11/20/17 03:05 Drugs of Abuse Note Disclamer 11/20/17 03:05 Plasma/Serum Alcohol < 0.01 % (0-0.07) 11/19/17 22:05 Blood Type A POSITIVE 11/19/17 22:29 Antibody Screen Negative 11/19/17 22:29
== END 2017-11-22 18:10 | disposition home or self-care (01) | DRG 101 ==
LOC: ED 21:54 → 4A 11-20 01:25
PROVIDERS: ADMIT Internal Medicine; ATTEND Internal Medicine
DX: G40.909 Epilepsy, unspecified, not intractable, without status epilepticus (principal); G45.9 Transient cerebral ischemic attack, unspecified; Z95.820 Peripheral vascular angioplasty status with implants and grafts; I10 Essential (primary) hypertension; E78.5 Hyperlipidemia, unspecified; I25.10 Atherosclerotic heart disease of native coronary artery without angina pectoris; I25.2 Old myocardial infarction; Z79.899 Other long term (current) drug therapy; Z95.5 Presence of coronary angioplasty implant and graft
CPT/HCPCS: 36415; 70450; 70551; 80053; 80061; 80307; 80320; 81001; 82550; 82553; 82962; 84484; 85025; 85610; 85670; 85730; 86850; 86900; 86901; 90686; 93005; 93010; 93880; 95819; 96365; 96375; A9270-GY; G0480; G8996-GN; G8997-GN; G8998-GN; J1644; J1953; J2060; Q2009